=== PATIENT | female | born 1960 ===

== ENCOUNTER 2022-08-24 08:07 | Day surgery (SDC) | payer OTHER ==
[2022-08-21 12:41] VITALS: BMI 27.4
[2022-08-24] MEDS ORDERED: MIDAZOLAM HCL 2 MG/2 ML SINGLE DOSE VIAL ONE (10:55)
[2022-08-24] MEDS ORDERED: BUPIVACAINE HCL/PF 2.5 MG/ML - 30 ML VIAL IJ ONE (11:05)
[2022-08-24] MEDS ORDERED: EPINEPHrine 1:1,000 1,000 MCG/ML ML ONE (11:06)
[2022-08-24] MEDS ORDERED: PROPOFOL 20 ML ONE (11:33)
[2022-08-24] MEDS ORDERED: oxyCODONE HCL 5 MG TABLET PO PRN (12:02)
[2022-08-24] MEDS ORDERED: PROMETHAZINE HCL 25 MG/1 ML VIAL IVPUSH PRN (12:02)
[2022-08-24] MEDS ORDERED: ONDANSETRON 4 MG/2 ML VIAL IVPUSH PRN (12:02)
[2022-08-24] MEDS ORDERED: LACTATED RINGERS SOLUTION 1,000 ML IV SCH (12:15)
[2022-08-24] MEDS ORDERED: FENTANYL CITRATE/PF 50 MCG/ML VIAL ONE (12:40)
[2022-08-24 13:09] VITALS: PULSE 68; RESP 18; TEMP 97
[2022-08-24 13:54] VITALS: BP 140/74
== END 2022-08-24 13:51 | disposition home or self-care (01) ==
LOC: FASU 08:07
PROVIDERS: ATTEND Orthopaedic Surgery
PROC: 0SBD4ZZ Excision of Left Knee Joint, Percutaneous Endoscopic Approach (ICD-10-PCS; 2022-08-24)
PROC: 0SBD4ZZ Excision of Left Knee Joint, Percutaneous Endoscopic Approach (ICD-10-PCS; principal; 2022-08-24 11:32)
DX: S83.282A Other tear of lateral meniscus, current injury, left knee, initial encounter (principal); S83.242A Other tear of medial meniscus, current injury, left knee, initial encounter; S83.8X2A Sprain of other specified parts of left knee, initial encounter; M65.862 Other synovitis and tenosynovitis, left lower leg; X58.XXXA Exposure to other specified factors, initial encounter; Y93.9 Activity, unspecified; Y92.9 Unspecified place or not applicable
CPT/HCPCS: 94760